=== PATIENT | female | born 1980 | race Caucasian/White ===

== ENCOUNTER 2018-07-26 14:23 | Inpatient (IN) | payer MEDICAID | END 2018-07-28 12:45 | disposition home or self-care (01) | LOC: ER 14:23 → PCU 3S 07-27 09:20 ==

== ENCOUNTER 2018-08-10 23:44 | Emergency (ER) | payer MEDICAID ==
[~2018-08-10] VITALS: Ht 172.7 cm; Wt 158.7 kg
[~2018-08-10 23:44] MED LIST: ACET500C46 PO; ARIP30TA7 PO; BUPR1FIL17 SL; CETI-102 PO; CLON-527 PO; LEVO75TA PO; POTA20TA10 PO
[2018-08-11] MEDS ORDERED: LORazepam 1 MG tablet PO ONE (01:30)
[2018-08-11] MEDS ORDERED: QUET-1 PO (01:34)
[2018-08-11] MEDS ORDERED: CLON-527 PO (01:34)
[2018-08-11 01:48] VITALS: BP 134/79
== END 2018-08-11 01:50 | disposition home or self-care (01) ==
LOC: EEVIPCON 23:46 → ER 23:46
DX: F31.9 Bipolar disorder, unspecified (principal); J45.909 Unspecified asthma, uncomplicated; Z88.2 Allergy status to sulfonamides; Z88.1 Allergy status to other antibiotic agents; Z88.0 Allergy status to penicillin; Z88.8 Allergy status to other drugs, medicaments and biological substances; Z79.899 Other long term (current) drug therapy; Z60.2 Problems related to living alone
CPT/HCPCS: 99284

== ENCOUNTER 2018-08-12 03:58 | Emergency (ER) | payer MEDICAID ==
[~2018-08-12] VITALS: Ht 172.7 cm; Wt 157.8 kg
[~2018-08-12 03:58] MED LIST changes: +QUET-1 PO
[2018-08-12 04:08] VITALS: BP 149/94
== END 2018-08-12 04:27 | disposition home or self-care (01) ==
LOC: ER 03:59
DX: S90.32XA Contusion of left foot, initial encounter (principal); J45.909 Unspecified asthma, uncomplicated; Z88.2 Allergy status to sulfonamides; Z88.1 Allergy status to other antibiotic agents; Z88.0 Allergy status to penicillin; Z88.8 Allergy status to other drugs, medicaments and biological substances; Z79.899 Other long term (current) drug therapy; Z60.2 Problems related to living alone; W22.8XXA Striking against or struck by other objects, initial encounter; Y93.89 Activity, other specified; Y92.89 Other specified places as the place of occurrence of the external cause; Y99.8 Other external cause status
CPT/HCPCS: 73630; 99283

== ENCOUNTER 2018-08-25 23:10 | Emergency (ER) | payer MEDICAID ==
[~2018-08-25] VITALS: Ht 172.7 cm; Wt 157.0 kg
[2018-08-25 23:27] VITALS: BP 158/88
[2018-08-26] MEDS ORDERED: CIPR-259 PO (00:57)
[2018-08-26] MEDS ORDERED: AZIT250T83 PO (00:57)
== END 2018-08-26 01:06 | disposition home or self-care (01) ==
LOC: ER 23:10
DX: L02.426 Furuncle of left lower limb (principal); L02.425 Furuncle of right lower limb; J45.909 Unspecified asthma, uncomplicated; Z88.2 Allergy status to sulfonamides; Z88.0 Allergy status to penicillin; Z88.1 Allergy status to other antibiotic agents; Z88.8 Allergy status to other drugs, medicaments and biological substances; Z79.899 Other long term (current) drug therapy; Z60.2 Problems related to living alone
CPT/HCPCS: 99284